=== PATIENT | female | born 1950 | race Caucasian/White ===

== ENCOUNTER 2016-08-11 00:37 | Inpatient (IN) | payer OTHER ==
[~2016-08-11] VITALS: Ht 152.4 cm; Wt 106.5 kg
[~2016-08-11 00:37] MED LIST: ATORVASTATIN PO; BYSTOLIC10 MG PO; ECOTRIN325 MG PO; HYDROCHLOROTH12.5 M3 PO; LISINOPRIL40 MG PO
[2016-08-11 01:03] LABS: HEMATOCRIT 44.1 % (36.0-46.0); MCH 30.5 PG (29.0-34.0); MCHC 33.6 G/DL (30.0-36.0); MCV 90.9 FL (83-99); PLATELET COUNT 331 K/uL (156-360); RBC DIS.WIDTH-CV 14.4 % (11.8-14.6); RBC DIS.WIDTH-SD 48.4 % (39-53); RED BLOOD COUNT 4.85 M/uL (3.80-5.20)
[2016-08-11 01:16] LABS: CHLORIDE 107 mEq/L (99-109); POTASSIUM 3.4 mEq/L (3.7-5.4); SODIUM 143 mEq/L (136-147)
[2016-08-11 01:18] LABS: GLUCOSE 162 mg/dL (70-99)
[2016-08-11 01:19] LABS: ANION GAP 18 MEQ/L (2-14)
[2016-08-11 01:20] LABS: TOTAL BILIRUBIN 2.9 mg/dL (0.0-1.0)
[2016-08-11 01:22] LABS: ALKALINE PHOSPHATASE 578 IU/L (3-129); GFR ESTIMATE (CALCULATED) 48 mL/min/
[2016-08-11 01:23] LABS: UREA NITROGEN (BUN) 17 mg/dL (9-23)
[2016-08-11 02:19] LABS: ADD MIUA? YES; BILIRUBIN NEGATIVE; BLOOD NEGATIVE; COLOR AMBER ((YELLOW)); GLUCOSE (STRIP) NEGATIVE; KETONES NEGATIVE; LEUKOCYTES TRACE; NITRITE NEGATIVE; PROTEIN (STRIP) NEGATIVE; SPECIFIC GRAVITY 1.021 (1.000-1.030)
[2016-08-11 02:35] LABS: BACTERIA RARE /HPF; EPITHELIAL CELLS 1+ /HPF; MUCUS TRACE /LPF; RED BLOOD CELLS 0-5 /HPF (0-5); UCUL ADDED? NO; WHITE BLOOD CELLS NONE SEEN /HPF (0-5)
[2016-08-11 03:56] LABS: SAMPLE HEMOLYSIS CHECK 0; SAMPLE ICTERIC CHECK 0; SAMPLE LIPEMIA CHECK 0
[2016-08-11 04:56] LABS: LIPASE > 6000 U/L (1.0-51.0)
[2016-08-11 05:54] VITALS: BP 174/80
[2016-08-11] MEDS ORDERED: ATORVASTATIN CA20 MG PO (06:14)
[2016-08-11] MEDS ORDERED: FISH OIL300 MG PO (06:15)
[2016-08-11] MEDS ORDERED: SENNA8.6 MG PO (06:16)
[2016-08-11] MEDS ORDERED: CALCIUM +D & M1 EACH PO (06:16)
[2016-08-11 08:33] VITALS: BP 154/70
[2016-08-11 11:10] LABS: HEMATOCRIT 37.5 % (36.0-46.0); MCH 30.8 PG (29.0-34.0); MCHC 33.3 G/DL (30.0-36.0); MCV 92.4 FL (83-99); MEAN PLAT.VOLUME 10.4 uM^3 (9.5-12.4); PLATELET COUNT 286 K/uL (156-360); RBC DIS.WIDTH-CV 14.7 % (11.8-14.6); RBC DIS.WIDTH-SD 50.1 % (39-53); RED BLOOD COUNT 4.06 M/uL (3.80-5.20); WHITE BLOOD COUNT 9.5 K/uL (4.1-10.2)
[2016-08-11 11:46] LABS: ALKALINE PHOSPHATASE 467 IU/L (3-129); ANION GAP 12 MEQ/L (2-14); CHLORIDE 109 MEQ/L (99-109); GFR ESTIMATE (CALCULATED) > 59 mL/min/; GLUCOSE 143 mg/dL (70-99); POTASSIUM 3.8 MEQ/L (3.7-5.4); SAMPLE HEMOLYSIS CHECK 0; SAMPLE ICTERIC CHECK 0; SAMPLE LIPEMIA CHECK 0; SODIUM 145 MEQ/L (136-147); TOTAL BILIRUBIN 2.6 MG/DL (0.0-1.0); UREA NITROGEN (BUN) 14 mg/dL (9-23)
[2016-08-11 12:04] LABS: LIPASE 5678 U/L (1.0-51.0)
[2016-08-11 15:52] VITALS: BP 133/62
[2016-08-11] MEDS ORDERED: ZESTRIL20 MG PO (16:19)
[2016-08-11] MEDS ORDERED: LO-DOSE ASPIRIN81 M2 PO (16:20)
[2016-08-12] VITALS: BP 128/59
[2016-08-12 03:59] VITALS: BP 145/69
[2016-08-12 08:23] VITALS: BP 129/62
[2016-08-12 08:44] LABS: EOSINOPHIL (%) 1.4 % (0-5); EOSINOPHIL COUNT 0.2 K/uL (0-0.3); HEMATOCRIT 34.4 % (36.0-46.0); IMMATURE GRANULOCYTE (%) 0.7 % (0.0-0.7); IMMATURE GRANULOCYTE COUNT 0.1 K/uL; INSTRUMENT ABS NEUTROPHIL CT 9.8 K/uL; LYMPHOCYTE COUNT 0.9 K/uL (1.0-2.8); MCH 30.7 PG (29.0-34.0); MCHC 32.8 G/DL (30.0-36.0); MCV 93.5 FL (83-99); MEAN PLAT.VOLUME 10.2 uM^3 (9.5-12.4); MONOCYTE (%) 8.9 % (3-12); MONOCYTE COUNT 1.1 K/uL (0-0.8); NEUTROPHIL (%) 81.3 % (45-76); NEUTROPHIL COUNT 9.8 K/uL (1.8-6.4); PLATELET COUNT 220 K/uL (156-360); RBC DIS.WIDTH-CV 15.6 % (11.8-14.6); RBC DIS.WIDTH-SD 53.9 % (39-53); RED BLOOD COUNT 3.68 M/uL (3.80-5.20); WHITE BLOOD COUNT 12.1 K/uL (4.1-10.2)
[2016-08-12 09:34] LABS: ALKALINE PHOSPHATASE 374 IU/L (3-129); ANION GAP 10 MEQ/L (2-14); CHLORIDE 111 MEQ/L (99-109); GFR ESTIMATE (CALCULATED) > 59 mL/min/; POTASSIUM 3.5 MEQ/L (3.7-5.4); SAMPLE HEMOLYSIS CHECK 0; SAMPLE ICTERIC CHECK 0; SAMPLE LIPEMIA CHECK 0; SODIUM 144 MEQ/L (136-147); UREA NITROGEN (BUN) 16 mg/dL (9-23)
[2016-08-12 09:36] LABS: GLUCOSE 87 mg/dL (70-99); TOTAL BILIRUBIN 0.9 MG/DL (0.0-1.0)
[2016-08-12 09:43] LABS: LIPASE 3143 U/L (1.0-51.0)
[2016-08-12 13:30] LABS: DIRECT BILIRUBIN ND mg/dL (0.0-0.3)
[2016-08-12 16:55] VITALS: BP 147/65
[2016-08-12 18:20] LABS: ALKALINE PHOSPHATASE 347 IU/L (3-129); DIRECT BILIRUBIN 0.2 mg/dL (0.0-0.3); TOTAL BILIRUBIN 0.9 MG/DL (0.0-1.0)
[2016-08-13 01:37] VITALS: BP 118/58
[2016-08-13 06:54] LABS: HEMATOCRIT 31.6 % (36.0-46.0); MCH 30.5 PG (29.0-34.0); MCHC 32.9 G/DL (30.0-36.0); MCV 92.7 FL (83-99); MEAN PLAT.VOLUME 10.5 uM^3 (9.5-12.4); PLATELET COUNT 212 K/uL (156-360); RBC DIS.WIDTH-CV 15.2 % (11.8-14.6); RBC DIS.WIDTH-SD 52.1 % (39-53); RED BLOOD COUNT 3.41 M/uL (3.80-5.20); WHITE BLOOD COUNT 12.5 K/uL (4.1-10.2)
[2016-08-13 07:17] LABS: ALKALINE PHOSPHATASE 285 IU/L (3-129); ANION GAP 7 MEQ/L (2-14); CHLORIDE 111 MEQ/L (99-109); GFR ESTIMATE (CALCULATED) > 59 mL/min/; GLUCOSE 123 mg/dL (70-99); LIPASE 581 U/L (1.0-51.0); POTASSIUM 3.1 MEQ/L (3.7-5.4); SAMPLE HEMOLYSIS CHECK 0; SAMPLE ICTERIC CHECK 0; SAMPLE LIPEMIA CHECK 0; SODIUM 143 MEQ/L (136-147); TOTAL BILIRUBIN 0.8 MG/DL (0.0-1.0); UREA NITROGEN (BUN) 14 mg/dL (9-23)
[2016-08-13 08:13] VITALS: BP 181/77
[2016-08-13 11:20] LABS: HBSG INDEX 0.15
[2016-08-13 11:21] LABS: AHBS INDEX > 1000.00; HEPATITIS B SURFACE ANTIBODY REACTIVE; HPCA INDEX 0.06
[2016-08-13 11:22] LABS: ANTI-HEPATITIS B CORE (TOTAL) Nonreactive; HBCT INDEX 0.08
[2016-08-13 15:31] VITALS: BP 164/70
[2016-08-13 23:20] VITALS: BP 171/73
[2016-08-14 04:05] VITALS: BP 158/71
[2016-08-14 06:14] LABS: HEMATOCRIT 31.4 % (36.0-46.0); MCH 30.7 PG (29.0-34.0); MCHC 33.8 G/DL (30.0-36.0); MEAN PLAT.VOLUME 11.4 uM^3 (9.5-12.4); PLATELET COUNT 197 K/uL (156-360); RBC DIS.WIDTH-SD 50.4 % (39-53); RED BLOOD COUNT 3.45 M/uL (3.80-5.20)
[2016-08-14 07:26] LABS: ALKALINE PHOSPHATASE 219 IU/L (3-129); ANION GAP 9 MEQ/L (2-14); CHLORIDE 112 MEQ/L (99-109); GFR ESTIMATE (CALCULATED) > 59 mL/min/; GLUCOSE 106 mg/dL (70-99); LIPASE 136 U/L (1.0-51.0); POTASSIUM 3.4 MEQ/L (3.7-5.4); SAMPLE HEMOLYSIS CHECK 0; SAMPLE ICTERIC CHECK 0; SAMPLE LIPEMIA CHECK 0; SODIUM 142 MEQ/L (136-147); UREA NITROGEN (BUN) 13 mg/dL (9-23)
[2016-08-14 07:38] VITALS: BP 143/63
[2016-08-14 11:30] VITALS: BP 157/68
[2016-08-14 11:34] VITALS: BP 119/56
[2016-08-14 15:40] VITALS: BP 129/62
[2016-08-14 20:30] VITALS: BP 145/56
[2016-08-15 00:57] VITALS: BP 150/70
[2016-08-15 03:53] VITALS: BP 177/79
[2016-08-15 05:54] LABS: HEMATOCRIT 30.6 % (36.0-46.0); MCH 30.5 PG (29.0-34.0); MCHC 33.7 G/DL (30.0-36.0); MCV 90.5 FL (83-99); MEAN PLAT.VOLUME 10.5 uM^3 (9.5-12.4); PLATELET COUNT 232 K/uL (156-360); RBC DIS.WIDTH-CV 14.4 % (11.8-14.6); RBC DIS.WIDTH-SD 47.7 % (39-53); RED BLOOD COUNT 3.38 M/uL (3.80-5.20); WHITE BLOOD COUNT 10.7 K/uL (4.1-10.2)
[2016-08-15 06:23] LABS: ALKALINE PHOSPHATASE 215 IU/L (3-129); ANION GAP 8 MEQ/L (2-14); CHLORIDE 110 MEQ/L (99-109); GFR ESTIMATE (CALCULATED) > 59 mL/min/; GLUCOSE 112 mg/dL (70-99); LIPASE 110 U/L (1.0-51.0); POTASSIUM 3.3 MEQ/L (3.7-5.4); SAMPLE HEMOLYSIS CHECK 0; SAMPLE ICTERIC CHECK 0; SAMPLE LIPEMIA CHECK 0; SODIUM 140 MEQ/L (136-147); UREA NITROGEN (BUN) 9 mg/dL (9-23)
[2016-08-15 14:22] LABS: MAGNESIUM 1.7 mg/dl (1.3-2.7)
[2016-08-15 16:39] VITALS: BP 151/75
[2016-08-15 20:25] VITALS: BP 151/70
[2016-08-15 23:44] VITALS: BP 144/66
[2016-08-16 03:59] VITALS: BP 148/66
[2016-08-16 09:09] LABS: HEMATOCRIT 30.4 % (36.0-46.0); MCH 30.8 PG (29.0-34.0); MCHC 33.6 G/DL (30.0-36.0); MCV 91.8 FL (83-99); MEAN PLAT.VOLUME 10.4 uM^3 (9.5-12.4); PLATELET COUNT 259 K/uL (156-360); RBC DIS.WIDTH-CV 14.4 % (11.8-14.6); RED BLOOD COUNT 3.31 M/uL (3.80-5.20); WHITE BLOOD COUNT 10.8 K/uL (4.1-10.2)
[2016-08-16 09:36] LABS: ANION GAP 9 MEQ/L (2-14); CHLORIDE 112 MEQ/L (99-109); GFR ESTIMATE (CALCULATED) > 59 mL/min/; GLUCOSE 129 mg/dL (70-99); POTASSIUM 3.7 MEQ/L (3.7-5.4); SAMPLE HEMOLYSIS CHECK 0; SAMPLE ICTERIC CHECK 0; SAMPLE LIPEMIA CHECK 0; SODIUM 144 MEQ/L (136-147); UREA NITROGEN (BUN) 14 mg/dL (9-23)
[2016-08-16] MEDS ORDERED: HYDROCODON-ACE1 EAC7 PO (12:32)
[2016-08-16 16:57] VITALS: BP 153/68
== END 2016-08-16 18:34 | disposition home or self-care (01) | DRG 414 ==
LOC: EME → EDBD 00:37 → EDOF 04:51 → 3EAST 04:51
PROVIDERS: Emergency Medicine; Hospitalist; Internal Medicine Gastroenterology; Nurse Practitioner Family; Physician Assistant
PROC: 0FT40ZZ Resection of Gallbladder, Open Approach (ICD-10-PCS; principal; 2016-08-15)
DX: K80.12 Calculus of gallbladder with acute and chronic cholecystitis without obstruction (principal); K85.10 Biliary acute pancreatitis without necrosis or infection; Z68.42 Body mass index [BMI] 45.0-49.9, adult; I10 Essential (primary) hypertension; E78.00 Pure hypercholesterolemia, unspecified; E78.5 Hyperlipidemia, unspecified; E66.01 Morbid (severe) obesity due to excess calories; E86.0 Dehydration; E87.6 Hypokalemia; E78.1 Pure hyperglyceridemia; J45.909 Unspecified asthma, uncomplicated; Z87.891 Personal history of nicotine dependence
CPT/HCPCS: 74177; 74183; 76705; 80048; 80053; 80076; 81003; 82248; 83690; 83735; 85025; 85027; 86256 90; 86704; 86706; 86708 90; 86803; 87340; 88304; 88305; 94640; 99281; 99285; J0330; J0690; J1100; J1170; J1644; J1956; J2270; J2405; J2543; J2710; J3010; J3480; J7030; J7042; J7050; S0028; S0030